=== PATIENT | male | born 1965 | race African-American/Black ===

== ENCOUNTER 2022-11-07 20:41 | Observation (INO) ==
[2022-11-07] MEDS ORDERED: SODIUM CHLORIDE 0.9% 500 ML IV STA (20:47)
[2022-11-07] MEDS ORDERED: Heparin IV Adult Wt-Based Low-Dose *NO* Bolus Protocol IV ONE (20:54)
--- NOTE | 2022-11-07 20:54 | Emergency Department Note ---
Impression & Plan Atypical chest pain, H/O cocaine abuse, History of TIAs ED Provider Note NAME: DAVID FORD AGE: 56 SEX: M : 1965 ARRIVES VIA: Ambulance INFORMANT: Patient, ED PROVIDER(S): Harvinder Chicas MD CHIEF COMPLAINT: Chest pain MEDICAL DECISION MAKING: Patient presents due to concern for atypical chest pain symptoms. The patient's initial EMS EKG did show concern for mild elevation in V1 and V2 but the patient had no active chest pain. A subsequent repeat EMS EKG appear to be improved and this was after nitro. Upon presentation the patient has no acute chest pain. The patient was ordered an IV and blood work. Heparin low-dose without bolus initially. The patient already had received aspirin. Patient was ordered IV fluids. Patient did have EKGs completed upon arrival x2. Patient has no active chest p ain. The patient does appear to have very mild elevation in V2 but not in contiguous leads on most recent EKG. Blood work shows a normal white count H&H and platelet count. Kidney function is unremarkable. Initial troponin is negative. Given the patient's atypical symptoms with initial more concerning prehospital EKG do believe the patient would benefit from treatment as an inpatient. Given the patient's troponin is not elevated will be treated as a possible ACS. Critical Care: I have personally spent 38 minutes of critical care time in direct management of this patient. This includes bedside care, interpretation of diagnostic studies, and testing, discussion with consultants, patient, and family members, and other require inpatient management activities. This 38 minutes is in excess of all separately billable procedures. Prior /Outside records reviewed: I did review the patient's 2 separate prehospital EKGs. Differential diagnosis: Cardiac ischemia, aortic dissection, pulmonary embolism, pneumothorax, pneumonia, pericarditis, myocarditis, esophageal rupture, GERD, cholecystitis, pancreatitis, musculoskeletal, as well as other pathologies. Diagnostics, as interpreted by az: ECG: Normal sinus rhythm, rate of 70, normal intervals significant motion artifact noted patient may have slight elevation in V2 which does not appear to be grossly present in V3. No obvious ST depressions. Repeat EKG interpreted by az Prehospital EKG #1 Sinus rhythm, rate of 70, normal intervals left axis deviation possible slight elevation in V1 and V2. Second prehospital EKG interpreted by me Sinus rhythm, rate of 73, normal intervals left axis deviation no obvious ST elevations. Normal sinus rhythm rate of 62 normal intervals normal axis T wave version lead III, trace elevation in V2 but without elevation noted in V1 or V3. Repeat EKG interpreted by me Normal sinus rhythm, rate of 62 normal intervals left axis deviation slight elevation in V2 but not in V3. No obvious elevation in V1. Cardiac monitoring: An order was placed for continuous cardiac monitoring. The monitor shows a rate of 72 with sinus rhythm. Patient was placed on pulse oximetry Medical decision rules: HEART score Imaging studies: See below I informally reviewed the patient's chest x-ray which shows no obvious pneumothorax. HPI: Patient presents due to concern for chest pain. Patient states that he initially developed chest pain around 4 seem to be in his central and left chest with radiation up to his neck and jaw. The patient states it would feel like a mccormick every time he stood up. Patient did have diaphoresis and nausea but no vomiting. Patient denies any prior history of heart or lung disease. Patient has been incarcerated at [facility] for approximately 17 months. Only recent medication change was for a longer acting form of an antidepressant/anxiety medication. The patient does have a known history of TIA and does take medications for blood pressure cholesterol as well as diabetes. Patient denies any active chest pain at this time. Patient's initial chest pain began 1 4:00 and last until about 820 when he initially received nitro and full dose aspirin. Patient denies any cough or fever. No history of blood clots. Patient denies any leg swelling or calf pain. The patient does complain of headache which only began after receiving nitro. Patient denies any numbness tingling or focal weakness PAST MEDICAL HISTORY: See Below PAST SURGICAL HISTORY: See Below SOCIAL HISTORY: See Below HOME MEDICATIONS: See Below ALLERGIES: See Below VITALS: See Below PHYSICAL EXAMINATION: GENERAL: NAD, non-toxic. EYE EXAM: Normal conjunctiva. PERRL, no anisocoria and EOM's grossly intact w/o pain. NECK: Supple, no nuchal rigidity, no adenopathy, non-tender. No signs of meningismus. FROM of the neck with good chin to chest and neck extension. No stridor. LUNGS: Clear to auscultation. Normal chest wall mechanics. HEART: NSR, no MRG. ABDOMEN: Abdomen soft, non-tender, no masses, no rebound or guarding. BACK: No CVA TTP. SKIN: No rashes and no bruising. UPPER EXTREMITIES: Upper extremities are grossly normal. LOWER EXTREMITIES: Grossly normal, no edema. Negative Homans' sign bilaterally NEURO EXAM: A&O x3, cranial nerves II-XII grossly intact, normal speech, moves all 4 extremities. Past Med/Surg History Medical History Anxiety Depression DM2 (diabetes mellitus, type 2) H/O: HTN (hypertension) HLD (hyperlipidemia) TIA (transient ischemic attack) Surgical History History of dental surgery Social History Smoking Status: Current every day smoker Tobacco Type: E-cigarettes / Vaping Hx Alcohol Use: No Hx Substance Use: Yes (former cocaine use) Current Living Situation Comment: [facility] Allergies Allergies Allergy/AdvReac Type Severity Reaction Status Date / Time hydrocortisone Allergy Unknown Unknown Verified 11/07/22 23:08 Home Meds Home Medications Medication Instructions Recorded Confirmed aspirin 81 mg tablet,delayed 81 mg PO DAILY 11/07/22 11/07/22 release insulin glargine 100 unit/mL 15 unit subcut DAILY 11/07/22 11/07/22 subcutaneous solution lisinopril 20 mg tablet 20 mg PO DAILY 11/07/22 11/07/22 metformin 1,000 mg tablet 1,000 mg PO BID 11/07/22 11/07/22 rosuvastatin 40 mg tablet 40 mg PO DAILY 11/07/22 11/07/22 venlafaxine 75 mg capsule,extended 75 mg PO HS 11/07/22 11/07/22 release 24 hr Results & Data (ED) Vital Signs Vital Signs - 24 hr 11/07/22 20:53 11/07/22 20:55 11/07/22 20:54 Temperature 36.9 C Temperature Source Oral Pulse Rate 69 67 65 Pulse Rate [Left Finger] Pulse Rate from SpO2 Sensor Respiratory Rate 20 Respiratory Effort / Characteristics Non-Labored Respiratory Depth Normal Blood Pressure 125/91 Blood Pressure [Right Arm] Blood Pressure Mean 102 Blood Pressure Mean [Right Arm] Blood Pressure Position [Right Arm] Pulse Oximetry 100 100 Oxygen Delivery Method Room Air Room Air Sepsis Recent Fever Within 48 Hours No Sepsis New/Unexplained Change in Mental Status No Sepsis Action Taken by Nursing No Action Required 11/07/22 21:00 11/07/22 21:30 11/07/22 22:00 Temperature Temperature Source Pulse Rate 62 62 63 Pulse Rate [Left Finger] Pulse Rate from SpO2 Sensor 62 62 63 Respiratory Rate 18 16 18 Respiratory Effort / Characteristics Respiratory Depth Blood Pressure Blood Pressure [Right Arm] Blood Pressure Mean Blood Pressure Mean [Right Arm] Blood Pressure Position [Right Arm] Pulse Oximetry 100 100 100 Oxygen Delivery Method Sepsis Recent Fever Within 48 Hours Sepsis New/Unexplained Change in Mental Status Sepsis Action Taken by Nursing 11/07/22 22:32 11/08/22 00:54 Temperature Temperature Source Pulse Rate 70 Pulse Rate [Left Finger] 77 Pulse Rate from SpO2 Sensor 69 Respiratory Rate 16 18 Respiratory Effort / Characteristics Respiratory Depth Blood Pressure 141/87 H Blood Pressure [Right Arm] 136/93 Blood Pressure Mean 105 Blood Pressure Mean [Right Arm] 107 Blood Pressure Position [Right Arm] Lying Pulse Oximetry 100 99 Oxygen Delivery Method Room Air Sepsis Recent Fever Within 48 Hours Sepsis New/Unexplained Change in Mental Status Sepsis Action Taken by [facility] Medications Current Medication List: was personally reviewed by me Laboratory Data Attestation: I reviewed the patient's lab results. 11/07/22 20:48 11/07/22 20:48 Lab Results 11/07/22 11/07/22 11/07/22 Range/Units 20:48 20:48 20:48 WBC 6.36 (4.8-10.8) K/ul RBC 5.18 (4.70-6.10) M/uL Hgb 14.7 (14.0-18.0) g/dl Hct 44.4 (42.0-52.0) % MCV 85.7 (80.0-100.0) fL MCH 28.4 (25.0-34.0) pg MCHC 33.1 (32.0-36.0) g/dL RDW Std Deviation 47.3 H (36.4-46.3) fL RDW Coeff of Charlene 15.1 H (11.5-14.5) % Plt Count 275 (130-400) K/uL MPV 9.8 (9.4-12.4) fL Immature Gran % (Auto) 0.2 % Neut % (Auto) 35.9 % Lymph % (Auto) 47.3 % [place] % (Auto) 10.2 % Eos % (Auto) 4.7 % Baso % (Auto) 1.7 % Neut # (Auto) 2.28 (1.40-6.50) K/uL Lymph # (Auto) 3.01 (1.2-3.4) K/uL [place] # (Auto) 0.65 H (0.11-0.59) K/uL Eos # (Auto) 0.30 (0-0.50) K/uL Baso # (Auto) 0.11 (0-0.2) K/uL Immature Gran # (Auto) 0.01 (0.01-0.20) K/uL PT 10.7 (9.0-12.0) Seconds INR 1.0 (0.9-1.1) APTT 28.3 (21.0-31.0) Seconds PTT Ratio 1.0 Sodium 137 (136-145) mmol/L Potassium 4.0 (3.5-5.1) mmol/L Chloride 104 (98-107) mmol/L Carbon Dioxide 26 (21-32) mmol/L Anion Gap 7 (3-11) BUN 13 (6-23) mg/dl Creatinine 0.89 (0.6-1.4) mg/dl Est Cr Clr Drug Dosing 97.7 ml/min Est GFR ( Amer) 110.8 ml/min Est GFR (Non-Af Amer) 95.6 ml/min BUN/Creatinine Ratio 14.6 (10-20) Glucose 192 H (70-99(Fasting)) mg/dl Calcium 9.0 (8.6-10.3) mg/dl Magnesium 1.7 (1.7-2.4) mg/dl Total Bilirubin 0.3 (0.2-1.0) mg/dl AST 24 (13-39) U/L ALT 41 (7-52) U/L Alkaline Phosphatase 71 (34-104) U/L Troponin I High Sens 4.7 (0-20) pg/ml Total Protein 7.0 (6.0-8.3) gm/dl Albumin 4.2 (3.4-5.0) gm/dl Globulin 2.8 (2.5-4.0) gm/dl Albumin/Globulin Ratio 1.5 (0.9-2) Lipase 27 (11-82) U/L SARS-CoV-2, RNA, NAAT (NEGATIVE) 11/07/22 11/07/22 Range/Units 20:48 21:58 WBC (4.8-10.8) K/ul RBC (4.70-6.10) M/uL Hgb (14.0-18.0) g/dl Hct (42.0-52.0) % MCV (80.0-100.0) fL MCH (25.0-34.0) pg MCHC (32.0-36.0) g/dL RDW Std Deviation (36.4-46.3) fL RDW Coeff of Charlene (11.5-14.5) % Plt Count (130-400) K/uL MPV (9.4-12.4) fL Immature Gran % (Auto) % Neut % (Auto) % Lymph % (Auto) % [place] % (Auto) % Eos % (Auto) % Baso % (Auto) % Neut # (Auto) (1.40-6.50) K/uL Lymph # (Auto) (1.2-3.4) K/uL [place] # (Auto) (0.11-0.59) K/uL Eos # (Auto) (0-0.50) K/uL Baso # (Auto) (0-0.2) K/uL Immature Gran # (Auto) (0.01-0.20) K/uL PT (9.0-12.0) Seconds INR (0.9-1.1) APTT (21.0-31.0) Seconds PTT Ratio Sodium (136-145) mmol/L Potassium (3.5-5.1) mmol/L Chloride (98-107) mmol/L Carbon Dioxide (21-32) mmol/L Anion Gap (3-11) BUN (6-23) mg/dl Creatinine (0.6-1.4) mg/dl Est Cr Clr Drug Dosing ml/min Est GFR ( Amer) ml/min Est GFR (Non-Af Amer) ml/min BUN/Creatinine Ratio (10-20) Glucose (70-99(Fasting)) mg/dl Calcium (8.6-10.3) mg/dl Magnesium Cancelled (1.7-2.4) mg/dl Total Bilirubin (0.2-1.0) mg/dl AST (13-39) U/L ALT (7-52) U/L Alkaline Phosphatase (34-104) U/L Troponin I High Sens (0-20) pg/ml Total Protein (6.0-8.3) gm/dl Albumin (3.4-5.0) gm/dl Globulin (2.5-4.0) gm/dl Albumin/Globulin Ratio (0.9-2) Lipase (11-82) U/L SARS-CoV-2, RNA, NAAT NEGATIVE (NEGATIVE) Administered Medications Heparin Sodium/Dextrose (Heparin Sodium/Dextrose) 25,000 units in 500 mls @ 18 mls/hr IV .Q24H [facility]; Protocol Stop: 12/07/22 20:59 Last Admin: 11/07/22 21:48 Dose: 900 units/hr, 18 mls/hr Documented By: KATLIN Co-signed By: MED Discontinued Medications Calcium Carbonate (Calcium Carbonate 500 Mg Chewable Tab) 500 mg PO NOW STA Stop: 11/08/22 00:44 Last Admin: 11/08/22 00:56 Dose: 500 mg Documented By: FARIDA Sodium Chloride (Nss) 500 mls @ 999 mls/hr IV .Q31M STA Stop: 11/07/22 21:17 Last Infusion: 11/07/22 22:02 Dose: 0 mls/hr Documented By: Admin: 11/07/22 21:11 Dose: 999 mls/hr Documented By: KATLIN Sodium Chloride (Nss) 500 mls @ 999 mls/hr IV .Q31M ONE Stop: 11/07/22 21:29 Last Infusion: 11/07/22 22:52 Dose: 0 mls/hr Documented By: Admin: 11/07/22 21:48 Dose: 999 mls/hr Documented By: KATLIN Discharge Plan Visit Data Chief Complaint: Chest Pain Stated Complaint: CHEST PAIN ED Provider: Harvinder Chicas Discharge Problem: Atypical chest pain, H/O cocaine abuse, History of TIAs Forms Stand Alone Forms: [facility] Prescriptions Prescriptions: No Action venlafaxine 75 mg Capsule,Extended Release 24hr 75 mg PO HS insulin glargine [Semglee U-100 Insulin] 100 unit/mL Solution 15 unit SUBCUT DAILY lisinopril 20 mg Tablet 20 mg PO DAILY aspirin [Aspirin Low-Strength] 81 mg Tablet,Delayed Release (Dr/Ec) 81 mg PO DAILY metformin 1,000 mg Tablet 1,000 mg PO BID rosuvastatin 40 mg Tablet 40 mg PO DAILY Referrals Referrals: Yen STERLING [Primary Care Provider] -
[2022-11-07] MEDS ORDERED: SODIUM CHLORIDE 0.9% 500 ML IV ONE (20:59)
[2022-11-07] MEDS ORDERED: HEPARIN SODIUM/DEXTROSE 25,000 UNITS/500 ML BAG IV SCH (21:00)
[2022-11-07] MEDS ORDERED: Heparin IV Adult Wt-Based Low-Dose *NO* Bolus Protocol IV SCH (21:15)
[2022-11-07 21:23] LABS: Basophils # (auto) 0.11 K/uL (0-0.2); Basophils % (auto) 1.7 %; Eosinophils % (auto) 4.7 %; Hematocrit (blood only) 44.4 % (42.0-52.0); Hemoglobin 14.7 g/dl (14.0-18.0); Immature Granulocytes # (auto) 0.01 K/uL (0.01-0.20); Immature Granulocytes % (auto) 0.2 %; Lymphocytes # (auto) 3.01 K/uL (1.2-3.4); Lymphocytes % (auto) 47.3 %; Mean Corpuscular Hemoglobin 28.4 pg (25.0-34.0); Mean Corpuscular Hgb Conc 33.1 g/dL (32.0-36.0); Mean Corpuscular Volume 85.7 fL (80.0-100.0); Mean Platelet Volume 9.8 fL (9.4-12.4); Monocytes # (auto) 0.65 K/uL (0.11-0.59); Monocytes % (auto) 10.2 %; Neutrophils # (auto) 2.28 K/uL (1.40-6.50); Neutrophils % (auto) 35.9 %; Platelet Count 275 K/uL (130-400); RDW Coefficient of Variation 15.1 % (11.5-14.5); RDW Standard Deviation 47.3 fL (36.4-46.3); Red Blood Count 5.18 M/uL (4.70-6.10); White Blood Count 6.36 K/ul (4.8-10.8)
[2022-11-07 21:39] LABS: Albumin Globulin Ratio 1.5 (0.9-2); Albumin Level 4.2 gm/dl (3.4-5.0); BUN Creatinine Ratio 14.6 (10-20); Bilirubin,Total 0.3 mg/dl (0.2-1.0); Creatinine Clr Calc Pharmacy 97.7 ml/min; Est GFR (African American) 110.8 ml/min; Est GFR (Non-African American) 95.6 ml/min; Globulin 2.8 gm/dl (2.5-4.0)
[2022-11-07 21:46] LABS: Troponin I High Sensitivity 4.7 pg/ml (0-20)
[2022-11-07 21:49] LABS: Partial Thromboplastin Time 28.3 Seconds (21.0-31.0); Prothrombin Time 10.7 Seconds (9.0-12.0)
[2022-11-07 22:41] LABS: Magnesium 1.7 mg/dl (1.7-2.4)
[2022-11-08] MEDS ORDERED: CALCIUM CARBONATE 500 MG CHEWABLE TAB PO STA (00:43)
--- NOTE | 2022-11-08 01:51 | History & Physical Report ---
Date of Service November 08, 2022 Assessment & Plan (1) Unstable angina: Plan: hypertension, stable hx TIA hyperlipidemia on statin Rx DM2 insulin requiring, suboptimal control as of hemoglobin A1c of 15 last year mood disorder, at baseline chronic anemia, hemoglobin better than baseline past history of substance abuse ongoing vape use OBS PCU Continue aspirin and statin Rx for secondary CAD prevention continue IV heparin for possible ACS low dose Lopressor for possible unstable angina Follow troponin Cardiology consult Re: Unstable angina N.p.o. until patient seen by cardiology in anticipation of ischemic work-up Update lipid profile and hemoglobin A1c Basal bolus insulin adjusted for n.p.o. status, ISS BG goal 1 10-1 40 Nicotine replacement therapy as needed DVT prophylaxis. IV heparin Full code Text document was generated using [employer] voice recognition software. It may contain grammatical or spelling errors. Kindly contact undersigned for clarification of any documentation item in question. History of Present Illness Chief Complaint: Chest pain Primary Care Provider: HALLIE Barlow History obtained from patient and records. Medical history significant for hypertension, TIA, hyperlipidemia, DM2 insulin requiring, mood disorder, GERD, chronic anemia (baseline hemoglobin of 13)past history of substance abuse, ongoing vape use. Last night, patient noted epigastric discomfort going to his chest and jaw associated with shortness of breath and diaphoresis. Different from heartburn episodes as per patient. Short-lived episode last year attributed to uncontrolled sugars secondary to newly diagnosed DM. Chest pain relieved by nitroglycerin administration at a correctional facility. IV heparin initiated at the ER for possible ACS. 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 Allergies Allergy/AdvReac Type Severity Reaction Status Date / Time hydrocortisone Allergy Unknown Unknown Verified 11/07/22 23:08 Home Medications Medication Instructions Recorded Confirmed Type aspirin 81 mg tablet,delayed 81 mg PO DAILY 11/07/22 11/07/22 History release insulin glargine 100 unit/mL 15 unit subcut DAILY 11/07/22 11/07/22 History subcutaneous solution lisinopril 20 mg tablet 20 mg PO DAILY 11/07/22 11/07/22 History metformin 1,000 mg tablet 1,000 mg PO BID 11/07/22 11/07/22 History rosuvastatin 40 mg tablet 40 mg PO DAILY 11/07/22 11/07/22 History venlafaxine 75 mg capsule,extended 75 mg PO HS 11/07/22 11/07/22 History release 24 hr Past Med/Surg History Medical History Anxiety Depression DM2 (diabetes mellitus, type 2) H/O: HTN (hypertension) HLD (hyperlipidemia) TIA (transient ischemic attack) Surgical History History of dental surgery Social History Smoking Status: Current every day smoker Tobacco Type: E-cigarettes / Vaping Second Hand Exposure: No; Do You Dip or Chew Tobacco: No; Hx Alcohol Use: No Hx Substance Use: Yes Last Used Substance: Unknown Preferred Language: Icelandic Outreach Educator Required: No Beliefs That Will Affect Care: None Current Living Situation: Other Current Living Situation Comment: Retirement Other Information That Helps Us Care for You: No Feels Safe at Home: Yes Safety Concerns: Feels Safe At This Time Assistive Devices: None Review of Systems Review of Systems: As per HPI, all other systems reviewed and negative Physical Exam Physical Exam: GENERAL: Comfortable, pleasant, obese, no respiratory distress SKIN: Normal color, warm HEENT: Alopecia, [place] palpebral conjunctivae, no ptosis, dry buccal mucosa NECK : Supple, no tenderness CHEST : CTA, no tenderness HEART : RRR, no obvious murmurs ABDOMEN: Some distention, nontender EXTREMITIES : No LE swelling/tenderness, no other conspicuous deformities noted NEUROLOGIC : Coherent, no facial asymmetry, no other gross focality Results & Data Results & Data Vital Signs (Past 12 Hours) Vital Signs Temp Pulse Pulse Resp BP BP Pulse Ox 11/08/22 01:00 62 11/08/22 00:54 77 18 136/93 99 11/07/22 22:32 70 16 141/87 H 100 11/07/22 22:00 63 18 100 11/07/22 21:30 62 16 100 11/07/22 21:00 62 18 100 11/07/22 20:54 65 11/07/22 20:55 67 100 11/07/22 20:53 36.9 C 69 20 125/91 100 O2 Del Method 11/08/22 01:00 05/03/23 00:54 Room Air 11/07/22 22:32 11/07/22 22:00 11/07/22 21:30 11/07/22 21:00 11/07/22 20:54 11/07/22 20:55 Room Air 11/07/22 20:53 Room Air Laboratory Results Laboratory Results WBC 6.36 K/ul (4.8-10.8) 11/07/22 20:48 RBC 5.18 M/uL (4.70-6.10) 11/07/22 20:48 Hgb 14.7 g/dl (14.0-18.0) 11/07/22 20:48 Hct 44.4 % (42.0-52.0) 11/07/22 20:48 MCV 85.7 fL (80.0-100.0) 11/07/22 20:48 MCH 28.4 pg (25.0-34.0) 11/07/22 20:48 MCHC 33.1 g/dL (32.0-36.0) 11/07/22 20:48 RDW Std Deviation 47.3 fL (36.4-46.3) H 11/07/22 20:48 RDW Coeff of Charlene 15.1 % (11.5-14.5) H 11/07/22 20:48 Plt Count 275 K/uL (130-400) 11/07/22 20:48 MPV 9.8 fL (9.4-12.4) 11/07/22 20:48 Immature Gran % (Auto) 0.2 % 11/07/22 20:48 Neut % (Auto) 35.9 % 11/07/22 20:48 Lymph % (Auto) 47.3 % 11/07/22 20:48 [place] % (Auto) 10.2 % 11/07/22 20:48 Eos % (Auto) 4.7 % 11/07/22 20:48 Baso % (Auto) 1.7 % 11/07/22 20:48 Neut # (Auto) 2.28 K/uL (1.40-6.50) 11/07/22 20:48 Lymph # (Auto) 3.01 K/uL (1.2-3.4) 11/07/22 20:48 [place] # (Auto) 0.65 K/uL (0.11-0.59) H 11/07/22 20:48 Eos # (Auto) 0.30 K/uL (0-0.50) 11/07/22 20:48 Baso # (Auto) 0.11 K/uL (0-0.2) 11/07/22 20:48 Immature Gran # (Auto) 0.01 K/uL (0.01-0.20) 11/07/22 20:48 PT 10.7 Seconds (9.0-12.0) 11/07/22 20:48 INR 1.0 (0.9-1.1) 11/07/22 20:48 APTT 28.3 Seconds (21.0-31.0) 11/07/22 20:48 PTT Ratio 1.0 11/07/22 20:48 Sodium 137 mmol/L (136-145) 11/07/22 20:48 Potassium 4.0 mmol/L (3.5-5.1) 11/07/22 20:48 Chloride 104 mmol/L (98-107) 11/07/22 20:48 Carbon Dioxide 26 mmol/L (21-32) 11/07/22 20:48 Anion Gap 7 (3-11) 11/07/22 20:48 BUN 13 mg/dl (6-23) 11/07/22 20:48 Creatinine 0.89 mg/dl (0.6-1.4) 11/07/22 20:48 Est Cr Clr Drug Dosing 97.7 ml/min 11/07/22 20:48 Est GFR ( Amer) 110.8 ml/min 11/07/22 20:48 Est GFR (Non-Af Amer) 95.6 ml/min 11/07/22 20:48 BUN/Creatinine Ratio 14.6 (10-20) 11/07/22 20:48 Glucose 192 mg/dl (70-99(Fasting)) H 11/07/22 20:48 Calcium 9.0 mg/dl (8.6-10.3) 11/07/22 20:48 Magnesium Cancelled 11/07/22 21:58 Total Bilirubin 0.3 mg/dl (0.2-1.0) 11/07/22 20:48 AST 24 U/L (13-39) 11/07/22 20:48 ALT 41 U/L (7-52) 11/07/22 20:48 Alkaline Phosphatase 71 U/L (34-104) 11/07/22 20:48 Troponin I High Sens 4.7 pg/ml (0-20) 11/07/22 20:48 Total Protein 7.0 gm/dl (6.0-8.3) 11/07/22 20:48 Albumin 4.2 gm/dl (3.4-5.0) 11/07/22 20:48 Globulin 2.8 gm/dl (2.5-4.0) 11/07/22 20:48 Albumin/Globulin Ratio 1.5 (0.9-2) 11/07/22 20:48 Lipase 27 U/L (11-82) 11/07/22 20:48 SARS-CoV-2, RNA, NAAT NEGATIVE (NEGATIVE) 11/07/22 20:48 Diagnostic Findings Chest x-ray as per my interpretation atelectasis EKG as per my interpretation : Rate 60, NSR, normal axis, incomplete RBBB, septal infarct, T wave flattening inferior leads
[2022-11-08] MEDS ORDERED: traMADol HCL 50 MG TABLET PO PRN (01:56)
[2022-11-08] MEDS ORDERED: LORazepam 0.5 MG TAB PO PRN (01:56)
[2022-11-08] MEDS ORDERED: MoRPHine SULFATE 4 MG/ML 1 ML CARP\\VIAL IV PRN (01:56)
[2022-11-08] MEDS ORDERED: PROMETHAZINE HCL 12.5 MG in SODIUM CHLORIDE 0.9% 50 ML IV PRN (01:56)
[2022-11-08] MEDS ORDERED: METOPROLOL TARTRATE 25 MG TAB PO STA (01:56)
[2022-11-08] MEDS ORDERED: SODIUM CHLORIDE 0.9% 1000ML 1,000 ML IV STA (02:09)
[2022-11-08 03:52] LABS: Hematocrit (blood only) 39.4 % (42.0-52.0); Mean Corpuscular Hemoglobin 28.7 pg (25.0-34.0); Mean Platelet Volume 9.5 fL (9.4-12.4); Platelet Count 248 K/uL (130-400); RDW Coefficient of Variation 15.3 % (11.5-14.5); RDW Standard Deviation 48.5 fL (36.4-46.3); Red Blood Count 4.53 M/uL (4.70-6.10); White Blood Count 6.64 K/ul (4.8-10.8)
[2022-11-08] MEDS ORDERED: CARBOHYDRATES FOR HYPOGLYCEMIA PO PRN (03:53)
[2022-11-08] MEDS ORDERED: ACETAMINOPHEN 325 MG TAB PO PRN (03:53)
[2022-11-08] MEDS ORDERED: GLUCOSE 10 TAB/TUBE PO PRN (03:53)
[2022-11-08] MEDS ORDERED: NITROGLYCERIN SL 0.4 MG/TAB TAB SL PRN (03:53)
[2022-11-08] MEDS ORDERED: DEXTROSE 50% 50 ML SYRINGE IV PRN (03:53)
[2022-11-08] MEDS ORDERED: GLUCOSE 40% GEL 15 GM TUBE PO PRN (03:53)
[2022-11-08] MEDS ORDERED: GLUCAGON FOR INJ 1 MG VIAL SQ PRN (03:53)
[2022-11-08 03:56] LABS: BUN Creatinine Ratio 16.7 (10-20); Calcium 8.3 mg/dl (8.6-10.3); Creatinine Clr Calc Pharmacy 96.6 ml/min; Est GFR (African American) 110.3 ml/min; Est GFR (Non-African American) 95.1 ml/min; Potassium 4.1 mmol/L (3.5-5.1)
[2022-11-08] MEDS ORDERED: INSULIN ASPART PER UNIT CHARGE SC SCH (04:00)
[2022-11-08 04:14] LABS: Partial Thromboplastin Ratio 1.3; Partial Thromboplastin Time 35.6 Seconds (21.0-31.0)
[2022-11-08] MEDS ORDERED: HEPARIN SOD (PORCINE) 1000 UNIT/ML IV ONE (04:30)
[2022-11-08 04:32] LABS: Basophils # (auto) 0.08 K/uL (0-0.2); Basophils % (auto) 1.2 %; Eosinophils # (auto) 0.28 K/uL (0-0.50); Eosinophils % (auto) 4.2 %; Immature Granulocytes # (auto) 0.01 K/uL (0.01-0.20); Immature Granulocytes % (auto) 0.2 %; Lymphocytes # (auto) 3.53 K/uL (1.2-3.4); Lymphocytes % (auto) 53.2 %; Monocytes # (auto) 0.67 K/uL (0.11-0.59); Monocytes % (auto) 10.1 %; Neutrophils # (auto) 2.07 K/uL (1.40-6.50); Neutrophils % (auto) 31.1 %; RBC Morphology Unremarkable
[2022-11-08 07:57] LABS: Estimated Average Glucose 203 mg/dl; Hemoglobin A1C 8.7 % (4.5-5.6)
[2022-11-08] MEDS: LANTUS PER UNIT CHARGE SQ SCH (08:16)
--- NOTE | 2022-11-08 08:26 | XRay Report ---
SINGLE VIEW CHEST CLINICAL HISTORY: Atypical chest pain. FINDINGS: An AP, portable, upright chest radiograph is obtained. No prior studies are available for c omparison at the time of dictation. The examination is degraded by portable technique and apical lord otic positioning. The cardiomediastinal silhouette is unremarkable. The lungs and pleural spaces are clear noting mild bibasilar atelectasis. No pneumothorax is seen. The bony thorax is grossly intact. IMPRESSION: No active disease in the chest. ACT 112: Negative or not required by law. Electronically signed by: Jimmy Moore M.D. 11/08/2022 8:25 AM
[2022-11-08] MEDS: lisinopril 20 MG TAB PO SCH (08:28)
[2022-11-08] MEDS: ROSUVASTATIN CALCIUM 20 MG TAB PO SCH (08:28)
[2022-11-08] MEDS: ASPIRIN 81 MG ECTAB PO SCH (08:28)
--- NOTE | 2022-11-08 10:27 | Cardiology Consultation ---
Date of Consultation November 08, 2022 Assessment & Plan (1) Atypical chest pain: (2) Dizziness: - At present, patient states he has no additional chest discomfort while he is sedentary handcuffed to the bed. -He however does have persistent dizziness. He does not notice it when he is lying still, but when he moves his neck he has the dizziness. -I would recommend further work-up with appropriate imaging for neurologic symptoms. -Telemetry reveals sinus rhythm in the range of 50s to 70s, and is blood pressu re has been stable, and I do not see a cardiac cause of his dizziness. -Once work-up for noncardiac dizziness completed, we will proceed with dobutamine stress echocardiogram. -High-sensitivity troponin has been negative x2. At present I am going to discontinue his unfractionated heparin infusion. We will collaborate with the hospitalist team for further work of dizziness prior to considering a stress test. Continue aspirin, metoprolol, lisinopril, rosuvastatin in the meantime. LDL well controlled at 66 mg/dl. History of Present Illness Attending Physician: Kenneth Martínez MD History of Present Illness Osvaldo Cordero is a 56-year-old male seen in cardiology consultation per the request of Dr. Christopher for evaluation of dizziness and chest discomfort. Patient states that yesterday at the [facility] institution where he is an inmate he had sudden onset of dizziness followed by heavy perspiration and then a tightening in his chest. The symptoms persisted. He received a dose of sublingual nitroglycerin in the infirmary there and then another dose a dministered by EMS which apparently helped him feel better. Since arrival to the hospital he has had no recurrent chest discomfort. High-sensitivity troponin is negative x2. EKG tracings x2 yesterday revealed sinus rhythm with incomplete right bundle branch block morphology in lead V2 and no acute repolarization changes. His past medical history is notable for hypertension, dyslipidemia and recently diagnosed type 2 diabetes mellitus. Patient believes he had a previous heart stress test about 6 years ago. Family History: Describes that his mother suddenly due to a presumed heart event, details unknown, at the age of 33 1971 Allergies Allergy/AdvReac Type Severity Reaction Status Date / Time hydrocortisone Allergy Unknown Unknown Verified 11/07/22 23:08 Home Medications Medication Instructions Recorded Confirmed Type aspirin 81 mg tablet,delayed 81 mg PO DAILY 11/07/22 11/07/22 History release insulin glargine 100 unit/mL 15 unit subcut DAILY 11/07/22 11/07/22 History subcutaneous solution lisinopril 20 mg tablet 20 mg PO DAILY 11/07/22 11/07/22 History metformin 1,000 mg tablet 1,000 mg PO BID 11/07/22 11/07/22 History rosuvastatin 40 mg tablet 40 mg PO DAILY 11/07/22 11/07/22 History venlafaxine 75 mg capsule,extended 75 mg PO HS 11/07/22 11/07/22 History release 24 hr Patient History Medical History Anxiety Depression DM2 (diabetes mellitus, type 2) H/O: HTN (hypertension) HLD (hyperlipidemia) TIA (transient ischemic attack) Surgical History History of dental surgery Social History Smoking Status: Current every day smoker Tobacco Type: E-cigarettes / Vaping Second Hand Exposure: No; Do You Dip or Chew Tobacco: No; Hx Alcohol Use: No Hx Substance Use: Yes Last Used Substance: Unknown Preferred 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 Required: No Beliefs That Will Affect Care: None Current Living Situation: Other Current Living Situation Comment: Senior Care Other Information That Helps Us Care for You: No Feels Safe at Home: Yes Safety Concerns: Feels Safe At This Time Assistive Devices: None Review of Systems Review of Systems: All systems reviewed & are unremarkable except as noted in HPI & below Physical Exam Physical Exam: Temp Pulse Resp BP Pulse Ox O2 Del Method 36.4 C L 84 19 132/76 99 Room Air 11/08/22 07:03 11/08/22 07:03 11/08/22 07:03 11/08/22 07:03 11/08/22 07:03 11/08/22 07:03 Constitutional: WD/WN, vitals as above Respiratory: normal respiratory effort, lungs clear to auscultation Cardiovascular: RRR, no murmur, no edema Gastrointestinal (Abdomen): normal bowel sounds, soft, nontender, no hepatosplenomegaly Neurologic: PERRL, EOMI, accommodation nl, no face palsy, no dysarthria
[2022-11-08] MEDS ORDERED: MECLIZINE 12.5 MG TAB PO PRN (10:37)
[2022-11-08] MEDS ORDERED: Nursing to Pharmacy Communication SCH (10:45)
[2022-11-08] MEDS: INSULIN ASPART PER UNIT CHARGE SC SCH ×3 (11:49→19:56)
--- NOTE | 2022-11-08 13:21 | Electrocardiogram Report ---
Test Reason : Blood Pressure : / mmHG Vent. Rate : 070 BPM Atrial Rate : 070 BPM P-R Int : 148 ms QRS Dur : 094 ms QT Int : 386 ms P-R-T Axes : 057 -36 -28 degrees QTc Int : 416 ms Normal sinus rhythm Left axis deviation Incomplete right bundle branch block Septal infarct , age undetermined Abnormal ECG No previous ECGs available Confirmed by Serafin Long ([id number]) on 11/08/2022 1:21:07 PM Referred By: REFERRED SELF Confirmed By:Serafin Long
--- NOTE | 2022-11-08 13:24 | Electrocardiogram Report ---
Test Reason : Blood Pressure : / mmHG Vent. Rate : 062 BPM Atrial Rate : 062 BPM P-R Int : 154 ms QRS Dur : 100 ms QT Int : 424 ms P-R-T Axes : 058 -09 011 degrees QTc Int : 430 ms Normal sinus rhythm Incomplete right bundle branch block Septal infarct (cited on or before 07-NOV-2022) Abnormal ECG When compared with ECG of 07-NOV-2022 20:46, (unconfirmed) No significant change Confirmed by Serafin Long ([id number]) on 11/08/2022 1:24:19 PM Referred By: REFERRED SELF Confirmed By:Serafin Long
--- NOTE | 2022-11-08 13:34 | CT Scan Report ---
CT OF THE HEAD WITHOUT CONTRAST CLINICAL HISTORY: Dizziness. COMPARISON STUDY: No previous studies for comparison. CT DOSE: 558.98 mGy.cm TECHNIQUE: Helical axial images of the head were obtained without IV contrast. Automated exposure con trol was utilized for the study. A dose lowering technique was utilized adhering to the principles o f ALARA. FINDINGS: No acute intracranial hemorrhage, midline shift or mass effect is present. The ventricular system is unremarkable. The basal cisterns are patent. No extra-axial collections are present. There are no findings to suggest acute dural sinus thrombosis or acute territorial infarct. No significant calvarial abnormalities are present. Visualized portions of the sinuses and mastoid air cells are corby ar. IMPRESSION: No acute intracranial findings. ACT 112: Negative or not required by law. Electronically signed by: Lasha Edge M.D. 11/08/2022 1:31 PM
[2022-11-08] MEDS ORDERED: METOPROLOL TARTRATE 1 MG/ML VIAL IV ONE (14:31)
[2022-11-08] MEDS ORDERED: ATROPINE SULFATE 0.1 MG/ML 10ML SYR IV ONE (14:31)
[2022-11-08] MEDS ORDERED: DOBUTamine HCL 12.5 MG/ML 20 ML VIAL IV ONE (14:31)
[2022-11-08] MEDS ORDERED: FAMOTIDINE 10 MG TABLET PO PRN (17:51)
--- NOTE | 2022-11-08 17:58 | Hospitalist Progress Note ---
Date of Service November 08, 2022 Assessment & Plan (1) Unstable angina: Plan: Chest Pain Likely Non Cardiac H/O GERD --CXR:No active disease in the chest. --Dobutamine Stress: Negative for inducible ischemia --ECHO: Mild concentric LVH, EF 55 to 60%, trace tricuspid regurgitation. Pepcid as needed Appreciate cardiology input Continue aspirin, statin Dizziness Likely BPPV --CT head:No acute intracranial findings. Orthostatics Meclizine as needed PT eval Monitor on telemetry Hypertension Continue current medications Monitor H/O TIA hyperlipidemia Continue aspirin, statin DM II HbA1c 8.7 Continue insulin Mood disorder Chronic anemia H/O Substance abuse ongoing vape use Continue home medication DVT Px: Heparin SQ Code Status Full code Admission and Anticipated Discharge Date Admission Date: November 08, 2022 Subjective Patient is seen and examined at bedside Chest pain resolved this morning Had stress test earlier today Reports dizziness with head movement No other complaints Discussed with cardiology today Review of Systems Review of Systems: All systems reviewed & are unremarkable except as noted in Subjective Physical Exam Physical Exam: Physical Exam: Vitals signs as noted above General Appearance:Moderately built and nourished, no apparent distress Head: normocephalic, Atraumatic Eyes: normal inspection, EOMI Neck: supple, Trachea midline Respiratory/Chest: Normal breath sounds, CTA, No accessory muscle use Cardiovascular: S1, S2, No murmur Abdomen/GI:Soft, Non tender, Bowel sounds present Extremities/Musculoskeletal:normal inspection, no edema Neurologic/Psych:AAOX3, grossly no focal neurological deficits Skin: normal color, warm Results & Data Results & Data Vital Signs (Past 12 Hours) Vital Signs Temp Pulse Resp BP Pulse Ox O2 Del Method 11/08/22 16:03 36.7 C 54 L 19 143/83 H 98 Room Air 11/08/22 15:33 36.6 C 56 L 18 156/88 H 97 Room Air 11/08/22 11:16 36.4 C L 47 L 161/91 H 99 Room Air 11/08/22 07:03 36.4 C L 84 19 132/76 99 Room Air
--- NOTE | 2022-11-08 18:27 | Communication Note ---
Date of Service: November 08, 2022 CT of the brain negative for acute intracranial process. Patient seen at time of dobutamine stress test. Dizziness subjectively improved. Dobutamine stress echocardiogram negative for inducible ischemia. Stress test results suggest a low risk of underlying hemodynamically significant coronary heart disease. I am going to discontinue the metoprolol which was added to his medication regimen at time of admission. --Stress test results reviewed with Dr Martínez. --please call with questions or concerns.
[2022-11-08] MEDS ORDERED: METOPROLOL TARTRATE 25 MG TAB PO SCH ×2 (21:00)
[2022-11-08] MEDS ORDERED: VENLAFAXINE HCL XR 75 MG CAPXR PO SCH (21:00)
[2022-11-08] MEDS: HEPARIN SOD 5,000 UNIT/0.5 ML VIAL SQ SCH (21:31)
[2022-11-09 07:17] LABS: BUN Creatinine Ratio 15.6 (10-20); Creatinine Clr Calc Pharmacy 90.4 ml/min; Magnesium 1.8 mg/dl (1.7-2.4); Potassium 4.3 mmol/L (3.5-5.1)
[2022-11-09 07:20] LABS: Hematocrit (blood only) 44.7 % (42.0-52.0); Hemoglobin 14.7 g/dl (14.0-18.0); Mean Corpuscular Hemoglobin 28.5 pg (25.0-34.0); Mean Corpuscular Hgb Conc 32.9 g/dL (32.0-36.0); Mean Corpuscular Volume 86.6 fL (80.0-100.0); Mean Platelet Volume 9.7 fL (9.4-12.4); Platelet Count 298 K/uL (130-400); RDW Coefficient of Variation 15.2 % (11.5-14.5); RDW Standard Deviation 48.5 fL (36.4-46.3); Red Blood Count 5.16 M/uL (4.70-6.10); White Blood Count 5.98 K/ul (4.8-10.8)
[2022-11-09] MEDS: ROSUVASTATIN CALCIUM 20 MG TAB PO SCH (08:51)
[2022-11-09] MEDS: HEPARIN SOD 5,000 UNIT/0.5 ML VIAL SQ SCH (08:52)
[2022-11-09] MEDS: lisinopril 20 MG TAB PO SCH (08:52)
[2022-11-09] MEDS: ASPIRIN 81 MG ECTAB PO SCH (08:52)
[2022-11-09] MEDS: LANTUS PER UNIT CHARGE SQ SCH (08:58)
[2022-11-09] MEDS: INSULIN ASPART PER UNIT CHARGE SC SCH ×2 (09:08→11:57)
--- NOTE | 2022-11-09 11:39 | Electrocardiogram Report ---
Test Reason : Blood Pressure : / mmHG Vent. Rate : 050 BPM Atrial Rate : 050 BPM P-R Int : 154 ms QRS Dur : 090 ms QT Int : 444 ms P-R-T Axes : 054 -15 -05 degrees QTc Int : 404 ms Poor data quality, interpretation may be adversely affected Sinus bradycardia Nonspecific ST abnormality Abnormal ECG When compared with ECG of 07-NOV-2022 21:03, Incomplete right bundle branch block is no longer Present Confirmed by Serafin Long ([id number]) on 11/09/2022 11:39:24 AM Referred By: REFERRED SELF Confirmed By:Serafin Long
--- NOTE | 2022-11-09 12:46 | Hospitalist Progress Note ---
Date of Service November 09, 2022 Assessment & Plan (1) Unstable angina: Plan: Chest Pain Likely Non Cardiac H/O GERD --CXR:No active disease in the chest. --Dobutamine Stress: Negative for inducible ischemia --ECHO: Mild concentric LVH, EF 55 to 60%, trace tricuspid regurgitation. Pepcid as needed for GERD Appreciate cardiology input Continue aspirin, statin Resolved Dizziness Likely BPPV --CT head:No acute intracranial findings. Orthostatics negative Meclizine as needed PT eval Monitor on telemetry--No issues Resolved Hypertension Continue current medications Monitor H/O TIA hyperlipidemia Continue aspirin, statin DM II HbA1c 8.7 Continue insulin Mood disorder Chronic anemia H/O Substance abuse ongoing vape use Continue home medication DVT Px: Heparin SQ Code Status Full code Admission and Anticipated Discharge Date Admission Date: November 08, 2022 Subjective Patient is seen and examined at bedside States feeling well today No recurrence of chest pain Dizziness resolved Sinus bradycardia without any issues on monitor No other complaints Discussed with cardiology today Plan to discharge today Review of Systems Review of Systems: All systems reviewed & are unremarkable except as noted in Subjective Physical Exam Physical Exam: Physical Exam: Vitals signs as noted above General Appearance:Moderately built and nourished, no apparent distress Head: normocephalic, Atraumatic Eyes: normal inspection, EOMI Neck: supple, Trachea midline Respiratory/Chest: Normal breath sounds, CTA, No accessory muscle use Cardiovascular: S1, S2, No murmur Abdomen/GI:Soft, Non tender, Bowel sounds present Extremities/Musculoskeletal:normal inspection, no edema Neurologic/Psych:AAOX3, grossly no focal neurological deficits Skin: normal color, warm Results & Data Results & Data Vital Signs (Past 12 Hours) Vital Signs Temp Pulse Pulse Resp BP Pulse Ox O2 Del Method 11/09/22 11:25 36.3 C L 47 L 18 134/80 98 Room Air 11/09/22 08:00 54 L 11/09/22 07:48 36.4 C L 59 L 18 155/83 H 11/09/22 03:45 36.8 C 52 L 18 131/78 98 Room Air 11/09/22 02:02 57 L Laboratory Results Short CBC 11/09/22 Range/Units 06:27 WBC 5.98 (4.8-10.8) K/ul Hgb 14.7 (14.0-18.0) g/dl Hct 44.7 (42.0-52.0) % Plt Count 298 (130-400) K/uL BMP 11/09/22 06:27 Sodium 139 Potassium 4.3 Chloride 105 Carbon Dioxide 28 BUN 15 Creatinine 0.96 Glucose 143 H Calcium 9.0
--- NOTE | 2022-11-09 12:51 | Discharge Summary ---
Date of Service November 09, 2022 Admission HPI Per Admitting Provider History obtained from patient and records. Medical history significant for hypertension, TIA, hyperlipidemia, DM2 insulin requiring, mood disorder, GERD, chronic anemia (baseline hemoglobin of 13)past history of substance abuse, ongoing vape use. Last night, patient noted epigastric discomfort going to his chest and jaw associated with shortness of breath and diaphoresis. Different from heartburn episodes as per patient. Short-lived episode last year attributed to uncontrolled sugars secondary to newly diagnosed DM. Chest pain relieved by nitroglycerin administration at a correctional facility. IV heparin initiated at the ER for possible ACS. 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 Admission Exam Per Admitting Provider GENERAL: Comfortable, pleasant, obese, no respiratory distress SKIN: Normal color, warm HEENT: Alopecia, [place] palpebral conjunctivae, no ptosis, dry buccal mucosa NECK : Supple, no tenderness CHEST : CTA, no tenderness HEART : RRR, no obvious murmurs ABDOMEN: Some distention, nontender EXTREMITIES : No LE swelling/tenderness, no other conspicuous deformities noted NEUROLOGIC : Coherent, no facial asymmetry, no other gross focality Principal Diagnosis Chest pain Dizziness Sinus bradycardia Discharge Data Allergies Allergy/AdvReac Type Severity Reaction Status Date / Time hydrocortisone Allergy Unknown Unknown Verified 11/07/22 23:08 Consultations 11/07/22 22:04 ED Decision to Admit Stat 11/08/22 01:55 Consult Cardiology Routine 11/08/22 03:53 Consult Cardiology Routine Procedures Performed Laboratory Results WBC 5.98 K/ul (4.8-10.8) 11/09/22 06:27 RBC 5.16 M/uL (4.70-6.10) 11/09/22 06:27 Hgb 14.7 g/dl (14.0-18.0) 11/09/22 06:27 Hct 44.7 % (42.0-52.0) 11/09/22 06:27 MCV 86.6 fL (80.0-100.0) 11/09/22 06:27 MCH 28.5 pg (25.0-34.0) 11/09/22 06:27 MCHC 32.9 g/dL (32.0-36.0) 11/09/22 06:27 RDW Std Deviation 48.5 fL (36.4-46.3) H 11/09/22 06: RDW Coeff of Charlene 15.2 % (11.5-14.5) H 11/09/22 06:27 Plt Count 298 K/uL (130-400) 11/09/22 06:27 MPV 9.7 fL (9.4-12.4) 11/09/22 06:27 Immature Gran % (Auto) 0.2 % 11/08/22 03:27 Neut % (Auto) 31.1 % 11/08/22 03:27 Lymph % (Auto) 53.2 % 11/08/22 03:27 [place] % (Auto) 10.1 % 11/08/22 03:27 Eos % (Auto) 4.2 % 11/08/22 03:27 Baso % (Auto) 1.2 % 11/08/22 03:27 Neut # (Auto) 2.07 K/uL (1.40-6.50) 11/08/22 03:27 Lymph # (Auto) 3.53 K/uL (1.2-3.4) H 11/08/22 03:27 [place] # (Auto) 0.67 K/uL (0.11-0.59) H 11/08/22 03:27 Eos # (Auto) 0.28 K/uL (0-0.50) 11/08/22 03:27 Baso # (Auto) 0.08 K/uL (0-0.2) 11/08/22 03:27 Immature Gran # (Auto) 0.01 K/uL (0.01-0.20) 11/08/22 03:27 RBC Morphology Unremarkable 11/08/22 03:27 PT 10.7 Seconds (9.0-12.0) 11/07/22 20:48 INR 1.0 (0.9-1.1) 11/07/22 20:48 APTT 35.6 Seconds (21.0-31.0) H 11/08/22 03:27 PTT Ratio 1.3 11/08/22 03:27 Sodium 139 mmol/L (136-145) 11/09/22 06: Potassium 4.3 mmol/L (3.5-5.1) 11/09/22 06:27 Chloride 105 mmol/L (98-107) 11/09/22 06:27 Carbon Dioxide 28 mmol/L (21-32) 11/09/22 06:27 Anion Gap 6 (3-11) 11/09/22 06:27 BUN 15 mg/dl (6-23) 11/09/22 06:27 Creatinine 0.96 mg/dl (0.6-1.4) 11/09/22 06:27 Est Cr Clr Drug Dosing 90.4 ml/min 11/09/22 06:27 Est GFR ( Amer) 102.0 ml/min 11/09/22 06:27 Est GFR (Non-Af Amer) 88.0 ml/min 11/09/22 06:27 BUN/Creatinine Ratio 15.6 (10-20) 11/09/22 06:27 Glucose 143 mg/dl (70-99(Fasting)) H 11/09/22 06:27 POC Glucose 142 mg/dl (70-99) H 11/09/22 11:01 Estimat Average Glucose 203 mg/dl 11/08/22 03:27 Hemoglobin A1c 8.7 % (4.5-5.6) H 11/08/22 03:27 Calcium 9.0 mg/dl (8.6-10.3) 11/09/22 06:27 Magnesium 1.8 mg/dl (1.7-2.4) 11/09/22 06:27 Total Bilirubin 0.3 mg/dl (0.2-1.0) 11/07/22 20:48 AST 24 U/L (13-39) 11/07/22 20:48 ALT 41 U/L (7-52) 11/07/22 20:48 Alkaline Phosphatase 71 U/L (34-104) 11/07/22 20:48 Troponin I High Sens 7.1 pg/ml (0-20) 11/08/22 10:34 Total Protein 7.0 gm/dl (6.0-8.3) 11/07/22 20:48 Albumin 4.2 gm/dl (3.4-5.0) 11/07/22 20:48 Globulin 2.8 gm/dl (2.5-4.0) 11/07/22 20:48 Albumin/Globulin Ratio 1.5 (0.9-2) 11/07/22 20:48 Triglycerides 153 mg/dl (0-150) H 11/08/22 03:27 Cholesterol 146 mg/dl (0-200) 11/08/22 03:27 LDL Cholesterol, Calc 66 mg/dl 11/08/22 03:27 VLDL Cholesterol, Calc 31 mg/dl (0-30) H 11/08/22 03:27 HDL Cholesterol 49 mg/dl 11/08/22 03:27 Cholesterol/HDL Ratio 3.0 (0-5) 11/08/22 03:27 Lipase 27 U/L (11-82) 11/07/22 20:48 Nasal Screen MRSA (PCR) Positive (Negative) A 11/08/22 04:55 SARS-CoV-2, RNA, NAAT NEGATIVE (NEGATIVE) 11/07/22 20:48 Impressions Chest X-Ray 11/07/22 20:47 SINGLE VIEW CHEST CLINICAL HISTORY: Atypical chest pain. FINDINGS: An AP, portable, upright chest radiograph is obtained. No prior studies are available for comparison at the time of dictation. The examination is degraded by portable technique and apical lordotic positioning. The cardiomediastinal silhouette is unremarkable. The lungs and pleural spaces are clear noting mild bibasilar atelectasis. No pneumothorax is seen. The bony thorax is grossly intact. IMPRESSION: No active disease in the chest. ACT 112: Negative or not required by law. Electronically signed by: Jimmy Moore M.D. 11/08/2022 8:[address] 11/08/22 10:36 CT OF THE HEAD WITHOUT CONTRAST CLINICAL HISTORY: Dizziness. COMPARISON STUDY: No previous studies for comparison. CT DOSE: 558.98 mGy.cm TECHNIQUE: Helical axial images of the head were obtained without IV contrast. Automated exposure control was utilized for the study. A dose lowering technique was utilized adhering to the principles of ALARA. FINDINGS: No acute intracranial hemorrhage, midline shift or mass effect is present. The ventricular system is unremarkable. The basal cisterns are patent. No extra-axial collections are present. There are no findings to suggest acute dural sinus thrombosis or acute territorial infarct. No significant calvarial abnormalities are present. Visualized portions of the sinuses and mastoid air cells are clear. IMPRESSION: No acute intracranial findings. ACT 112: Negative or not required by law. Electronically signed by: Lasha Edge M.D. 11/08/2022 1:31 PM Ordered Studies 11/08/22 10:36 CT head/brain wo con Urgent Hospital Course (1) Unstable angina: Chest Pain Likely Non Cardiac H/O GERD --CXR:No active disease in the chest. --Dobutamine Stress: Negative for inducible ischemia --ECHO: Mild concentric LVH, EF 55 to 60%, trace tricuspid regurgitation. Pepcid as needed for GERD Appreciate cardiology input Continue aspirin, statin Resolved Dizziness Likely BPPV --CT head:No acute intracranial findings. Orthostatics negative Meclizine as needed PT eval Monitor on telemetry--No issues Resolved Hypertension Continue current medications Monitor H/O TIA hyperlipidemia Continue aspirin, statin DM II HbA1c 8.7 Continue insulin Mood disorder Chronic anemia H/O Substance abuse ongoing vape use Continue home medication DVT Px: Heparin SQ Code Status Full code Total Time Total Time Spent Total Time Spent (In Minutes): 56 minutes Discharge Plan Discharge Items [facility] Disposition: [facility] Reason For Visit: CHEST PAIN Discharge Diagnosis: Chest pain Dizziness Sinus bradycardia Activity: Per Instructions section Exercise/Sports: Gradually increase as tolerated Non-emergency contact: Primary Care Provider Call non-emergency contact if: you have any medication questions, your symptoms worsen, your pain is concerning for you and you have a fever Follow-up/Referrals: Yen STERLING [Primary Care Provider] - Diet: Carb Consistent or DM2 and Heart Healthy Addtl Attending Provider Instructions: Follow-up with your physician at correctional facility in 1 week for further management. ---If your dizziness persists, consider following with ENT as outpatient --- You can use Pepcid as needed to help with your heartburn. If remains uncontrolled, can use Prilosec. Seek immediate medical attention if your symptoms reoccur or worsen Please take all medications as instructed on discharge list below. Please call if you have any questions or problems. You can reach a [facility] hospitalist on duty at [facility] 24 hours a day by calling [phone] Pending Studies at Discharge: No Skilled Items Patient informed of condition?: Yes DNR: No Discharge Level of Care: Other Communicable Disease: No Discharge Prognosis: Stable Lines: None Urinary Catheter: No Medications and DC Order Prescriptions: New famotidine [Acid Banquet Waiter/Waitress (famotidine)] 10 mg Tablet 10 mg PO BID PRN (Reason: heartburn) Qty: 30 0RF meclizine 12.5 mg Tablet 12.5 mg PO Q8H PRN (Reason: dizziness) Qty: 30 0RF Continued venlafaxine 75 mg Capsule,Extended Release 24hr 75 mg PO HS insulin glargine [Semglee U-100 Insulin] 100 unit/mL Solution 15 unit SUBCUT DAILY lisinopril 20 mg Tablet 20 mg PO DAILY aspirin [Aspirin Low-Strength] 81 mg Tablet,Delayed Release (Dr/Ec) 81 mg PO DAILY metformin 1,000 mg Tablet 1,000 mg PO BID rosuvastatin 40 mg Tablet 40 mg PO DAILY Krames/Other Patient Handouts: Managing Type 2 Diabetes Admission Data Admit Date/Time: 11/08/22 01:54 Attending Provider: Kenneth Martínez Admit Provider: Ravinder Casper Primary Care Provider: [facility] Other Providers: Osiris Jesus ; Vish Claire ; Tyree Felder ; Terrence Augustine ; Kavon Lopez ; Yogi Posada ; Brisa Lam ; Khadijah Quiñones Ashley M. ; Porfirio Olsen ; Lillie Cat ; Ravinder Casper
== END 2022-11-09 15:33 ==
LOC: 2S 20:41 → ED 20:41 → SUATTDRO 11-08 01:54 → 2S 11-08 03:10